=== PATIENT | male | born 1965 | race Caucasian/White ===

== ENCOUNTER 2023-06-16 01:24 | Day surgery (SDC) | payer OTHER, SELFPAY ==
[2023-05-26 08:56] VITALS: BMI 23.1
--- NOTE | 2023-06-14 09:53 | SUR.PREOP ---
Patient called regarding upcoming procedure. Reviewed preop instructions, appointment times, and procedure prep.
[2023-06-16 06:20] VITALS: BP 120/74; PULSE 61; RESP 18; TEMP 36.2; O2SAT 100
[2023-06-16] MEDS: LACTATED RINGERS 1,000 ML 150 ML IV CONT (06:29)
--- NOTE | 2023-06-16 07:19 | PM.HPGS ---
History of Present Illness History of Present Illness Consent: Risks, benefits, and alternatives have been discussed and questions answered. Patient agrees to proceed with procedure. Chief complaint: neoplasm screening Narrative: Dominic Villanueva is a 58 year old male Presents for screening colonoscopy. Patient was found to have a benign polyp at time of last colonoscopy 2017. Family history is also significant for colon polyps. Patient reports that his current weight appetite and bowel movements are normal. Patient denies abdominal pain. He has had no bleeding. He presents today for neoplasia screening. Review of Systems Review of Systems: Review of systems noncontributory. REPLACED BY [facility] Family History Family History Sibling Patient's sister is in good health Mother Patient's mother is in good health Father Cerebrovascular accident Social History Social History (Updated 11/21/22 @ 10:22 by Letitia Coffman [facility] [address]) Smoking status: Never smoker Second hand tobacco smoke exposure: No Alcohol intake: never Substance use: unknown Substance use type: does not use Lack of Transportation: No Lack of Food: Never True Current Housing: I Have Housing Concerned About Future Housing: No Difficulty Paying Gas/Electric Bills: No Difficulty Paying for Meds: No Currently Unemployed: No Education: Master's Degree or Higher Difficulty w/ Childcare or Family Care: No Living arrangements: with family Spiritual care concerns: No Meds Home Medications and Allergies Home Medications Medication Instructions Recorded Confirmed Type aspirin 81 mg tablet,delayed 81 mg PO DAILY 06/21/19 05/26/23 History release (Adult Low Dose Aspirin) esomeprazole magnesium 20 mg 20 mg PO DAILY 06/21/19 05/26/23 History capsule,delayed release (Nexium) fluticasone propionate 50 2 spray intranasal DAILY 06/21/19 05/26/23 History mcg/actuation nasal spray,suspension (Flonase Allergy Relief) valacyclovir 1 gram tablet 2,000 mg PO BID #4 tabs 10/12/21 05/26/23 Rx (Valtrex) simvastatin 10 mg tablet 10 mg PO DAILY #90 tabs 01/20/23 05/26/23 Rx Allergies Allergy/AdvReac Type Severity Reaction Status Date / Time No Known Allergies Allergy Verified 06/16/23 06:18 Vital Signs Vital Signs - 24 hr 06/16/23 06:20 Temperature 97.2 F L Pulse Rate 61 Respiratory Rate 18 Blood Pressure 120/74 Pulse Oximetry 100 Oxygen Delivery Room Air Exam Narrative: Physical exam reveals patient to be alert. Vital signs stable. HEENT exam is unremarkable. Patient is anicteric. Lungs are clear to auscultation and percussion. Heart is without murmur or extra sounds. Abdomen bowel sounds are present soft nontender with no organomegaly. Digital external rectal exam normal. Assessment and Plan Assessment and plan (1) Hx of colonic polyp: Code(s): Z86.010 - Personal history of colonic polyps Status: Acute Assessment and Plan: Patient has a history of colon polyps. Additionally there is a family history of colon polyps. Plan for surveillance colonoscopy now and consider this a 5 year intervals in the future.
--- NOTE | 2023-06-16 07:28 | WPDANESEPPF ---
Anes - Initial Pre Proc Eval Procedure: Operation Date: 06/16/23 07:30 Proposed Procedures p Screening Colonoscopy - Lopez Lord MD Date/Time: 06/16/23 07:28 Surgeon: Lopez Lord MD Pre Op Diagnosis: neoplasm screening Patient Data Age: 58 Gender: M Height: 1.83 m Weight: 80.2 kg Last Vital Signs Temp 97.2 F L 06/16/23 06:20 Pulse 61 06/16/23 06:20 Resp 18 06/16/23 06:20 BP 120/74 06/16/23 06:20 Pulse Ox 100 06/16/23 06:20 O2 Del Method Room Air 06/16/23 06:20 Allergies Allergy/AdvReac Type Severity Reaction Status Date / Time No Known Allergies Allergy Verified 06/16/23 06:18 Home Medications Medication Instructions Recorded Confirmed Type aspirin 81 mg tablet,delayed 81 mg PO DAILY 06/21/19 05/26/23 History release (Adult Low Dose Aspirin) esomeprazole magnesium 20 mg 20 mg PO DAILY 06/21/19 05/26/23 History capsule,delayed release (Nexium) fluticasone propionate 50 2 spray intranasal DAILY 06/21/19 05/26/23 History mcg/actuation nasal spray,suspension (Flonase Allergy Relief) valacyclovir 1 gram tablet 2,000 mg PO BID #4 tabs 10/12/21 05/26/23 Rx (Valtrex) simvastatin 10 mg tablet 10 mg PO DAILY #90 tabs 01/20/23 05/26/23 Rx Patient hx anesthesia problems: none Family hx anesthesia problems: none Results Review: All pre-operative results and documents have been reviewed as part of the pre-operative evaluation. [facility] Family History Family History Sibling Patient's sister is in good health Mother Patient's mother is in good health Father Cerebrovascular accident Social History Social History (Updated 11/21/22 @ 10:22 by Letitia Coffman CMA) Smoking status: Never smoker Second hand tobacco smoke exposure: No Alcohol intake: never Substance use: unknown Substance use type: does not use Lack of Transportation: No Lack of Food: Never True Current Housing: I Have Housing Concerned About Future Housing: No Difficulty Paying Gas/Electric Bills: No Difficulty Paying for Meds: No Currently Unemployed: No Education: Master's Degree or Higher Difficulty w/ Childcare or Family Care: No Living arrangements: with family Spiritual care concerns: No Anes - Eval Final PreProcedure Day of Procedure 06/16/23 07:28 Patient weight: normal Heart: regular rate and rhythm Lungs: clear to auscultation Airway: Mallampati scale class II Neurological: alert and oriented Last oral intake: >/= 8 hours ASA classification: II Emergent: no Anesthetic plan: proceed Anesthesia type and monitoring: general GIVS and standard monitoring Results Review: All pre-operative results and documents have been reviewed as part of the pre-operative evaluation. Informed Consent: The patient's anesthetic plan and its attendant risks and benefits were discussed with the patient/family/POA. Questions were solicited and answers provided to the satisfaction of the patient/family/POA.
[2023-06-16 07:49] VITALS: BP 96/60; PULSE 64; RESP 14; O2SAT 100
[2023-06-16 07:59] VITALS: BP 100/61; PULSE 67; RESP 16; O2SAT 100
[2023-06-16 08:09] VITALS: BP 110/67; PULSE 62; RESP 22; O2SAT 100
== END 2023-06-16 08:20 | disposition home or self-care (01) ==
PROVIDERS: PCP Internal Medicine; Visit Provider Internal Medicine Gastroenterology
PROC: 0DJD8ZZ Inspection of Lower Intestinal Tract, Via Natural or Artificial Opening Endoscopic (ICD-10-PCS; CPT 45378; principal; 2023-06-16 07:30)
DX: Z12.11 Encounter for screening for malignant neoplasm of colon (principal); Z86.010 Personal history of colon polyps; Z83.719 Family history of colon polyps, unspecified; K64.8 Other hemorrhoids; K57.30 Diverticulosis of large intestine without perforation or abscess without bleeding
CPT/HCPCS: 45378; J2704; J7120